=== PATIENT | female | born 1990 | race Caucasian/White ===

== ENCOUNTER 2017-11-05 22:14 | Emergency (ER) | payer OTHER ==
[~2017-11-05] VITALS: Ht 167.6 cm; Wt 73.0 kg
[2017-11-06] MEDS ORDERED: SODIUM CHLORIDE 0.9% 1,000 ML IV ONE (03:32)
[2017-11-06] MEDS ORDERED: FAMOTIDINE 20MG/2ML VIAL IV STA (03:32)
[2017-11-06] MEDS ORDERED: ONDANSETRON HCL 4MG/2ML VIAL IV STA (03:32)
[2017-11-06] MEDS ORDERED: MORPHINE SULFATE 4 MG/ML CPJ (NOT FOR IM USE) IV STA (03:32)
[2017-11-06 04:15] LABS: BASOPHILS % 0.3 % (0.0-2.0); HEMATOCRIT. 41.7 % (36.0-48.0); HEMOGLOBIN. 14.1 g/dL (12.0-16.0); MEAN CORPUSCULAR VOLUME 86.1 fL (81.0-99.0); MEAN PLATELET VOLUME 8.3 fl (7.4-10.4); MONOCYTES % 2.7 % (2.0-8.0); PLATELET 378 x1000/uL (130-400); RED BLOOD CELL COUNT 4.84 mill/uL (4.2-5.4); RED CELL DISTRIBUTION WIDTH 12.7 % (11.6-14.6)
[2017-11-06 04:29] LABS: CHLORIDE 108 mEq/L (98-107); HCG SCREEN NEGATIVE
[2017-11-06] MEDS ORDERED: POTASSIUM CHLORIDE 20MEQ TABLET SR PO ONE (06:15)
[2017-11-06 09:02] VITALS: BP 101/65
== END 2017-11-06 09:03 | disposition home or self-care (01) ==
LOC: ER 22:14
DX: E87.6 Hypokalemia (principal); D72.829 Elevated white blood cell count, unspecified; R19.7 Diarrhea, unspecified; R11.2 Nausea with vomiting, unspecified; R10.13 Epigastric pain; Z98.890 Other specified postprocedural states
CPT/HCPCS: 36415; 76700; 80053; 83690; 84703; 85025; 96361; 96374; 96375; 99285; J2270; J2405; J3490; J7030